=== PATIENT | female | born 1955 | race Hispanic/Latino ===

== ENCOUNTER 2016-07-27 22:18 | Emergency (ER) | payer OTHER ==
[~2016-07-27] VITALS: Ht 165.1 cm; Wt 81.6 kg
[~2016-07-27 22:18] MED LIST: AMOXIL500 MG PO; ANTIPYRINE & BE10 ML OT; ANTIVERT 25 MG25 MG PO; CIPRODEX 0.3%-7.5 ML OTIC; HYDROXYZINE PAM25 MG PO; IBU800 MG PO; LIPOFLAVONOID1 TAB PO; LISINOPRIL40 MG PO; METFORMIN500 MG PO; NASONEX0.05 MG/Ac NAS; PANTOPRAZOLE SO40 MG PO; SIMVASTATIN40 MG PO; ZOFRAN ODT4 MG SL
[2016-07-27 22:22] VITALS: BP 143/86
--- NOTE | 2016-07-27 22:39 | ED EAR COMPLAINT ---
History of Present Illness General Chief Complaint: Ear Complaints Stated Complaint: BILATERAL EAR PAIN Source: patient, family, old records Exam Limitations: language barrier Vital Signs & Intake/Output Vital Signs & Intake/Output Vital Signs Date Time Temp Pulse Resp B/P Pulse O2 O2 Flow FiO2 Ox Delivery Rate 07/27 2222 98.2 76 18 143/86 99 Room Air Allergies Coded Allergies: MDX - Shellfish (SHELLFISH) (UNKNOWN-POSSIBLE ANAPHYLAXIS 07/30/14) MDX - Aspirin (Aspirin) (RASH 05/06/14) MDX - Bananas (Bananas ([employer])) (RASH 05/06/14) MDX - Fruits (Fruits) (RASH 05/06/14) MDX - Metoclopramide (From REGLAN) (RESTLESS LEGS, ANXIETY 07/30/14) MDX - [place] ([place]) (RASH 05/06/14) Reconcile Medications Antipyrine/Benzocaine (Antipyrine-Benzocaine Ear Drop) 10 ML EMERITA 2-4 DROP OT Q4-6 PRN EAR PAIN, CERUMEN Hydroxyzine Pamoate (Hydroxyzine Venessa) 25 MG CAP 1 CAP PO PRN ANXIETY ( Reported) Ibuprofen (Ibu) 800 MG TAB 1 TAB PO PRN PAIN (Reported) Lisinopril 40 MG TABLET 1 TAB PO DAILY BP (Reported) METFORMIN HCL (Metformin) 500 MG TABLET 1 TAB PO BID DIABETES (Reported) Mometasone Furoate (Nasonex) 0.05 MG/Actuation SPR 2 SPRAY TOSHIA DAILY CONGESTION [id number] (Lipoflavonoid) 1 TAB TAB 1 TAB PO DAILY SUPPLEMENT (Reported) Pantoprazole Sodium 40 MG TABLET.DR 1 TAB PO DAILY AC PRN ACID REFLUX ( Reported) Simvastatin 40 MG TABLET 1 TAB PO QPM CHOLESTEROL (Reported) Tylenol With Codeine (Tylenol With Codeine #3 Tablet) 300 MG-30 MG TABLET 1 TAB PO Q6 PRN PAIN Triage Note: PT TO TRIAGE WITH C/O BILAT EAR PAIN, DIZZINESS, WEAKNESS x2DAYS. PT SPEAKS AMHARIC, PTS SON IN TRIAGE FOR TRANSLATION. PT DENIES CHEST PAIN, DENIES SOB, AFEBRILE, VSS. HX OF CHRONIC EAR ?PAIN/INFECTION. Triage Nurses Notes Reviewed? yes Onset: Gradual Duration: getting worse Timing: recent history Severity: severe Severity Numbers: 7 HPI: Patient is a 60-year-old female with a past medical history of diabetes, hypertension and hyperlipidemia who presents to emergency room with complaints of a significant remote history of ear pain and decreased hearing sensation. History is limited due to patient being primarily [place] speaking only however does present with son who states that "for the longest time" she's been complaining of ear pain where in the past 4 months she followed up with a [place] ear nose and throat doctor and Dr. Edwards in which she was administered ear drops for cerumen impaction and hearing aids however patient states that she has not leg using this due to pain worsening from application of these aids. The son also states that patient was told that she has narrow external auditory ear canals however no infection has ever been present from the ears. Patient denies any mechanism injury states that pain currently makes patient dizzy however denies any room spinning sensation. Denies any discharge fever chills sore throat headache neck pain neck stiffness. Patient has not taken any medications for pain Past History Travel History Traveled to [place] past 21 day No Medical History Any Pertinent Medical History? see below for history EENT: otitis media Cardiovascular: hypertension Endocrine: NIDDM Surgical History Surgical History: non-contributory Psychosocial History What is your primary language [place] Tobacco Use: Never used Family History Hx Contributory? No Review of Systems Review of Systems Constitutional: Reports: no symptoms. EENTM: Reports: see HPI, ear pain. Denies: ear discharge, ear redness. Respiratory: Reports: no symptoms. Cardiovascular: Reports: no symptoms. GI: Reports: no symptoms. Genitourinary: Reports: no symptoms. Musculoskeletal: Reports: no symptoms. Skin: Reports: no symptoms. Neurological/Psychological: Reports: no symptoms. Hematologic/Endocrine: Reports: no symptoms. Immunologic/Allergic: Reports: no symptoms. All Other Systems: Reviewed and Negative Physical Exam Physical Exam General Appearance: no apparent distress, alert, comfortable Ears: Bilateral: canal normal, Tympanic normal. Comments: HEENT: Normal EENT exam, extraocular motion intact, no nystagmus. Pupils equally round and reactive to light and accommodation. Nose is atraumatic. External auditory canal and Tympanic membranes clear. Pharynx normal. No swelling or edema. Neck: Supple, no lymphadenopathy, normal range of motion without pain or tenderness Back: Nontender, no CVA tenderness. Cardiovascular: Regular rate and rhythms no murmurs rubs or gallops, normal JVP Respiratory: Chest nontender. No respiratory distress.breath sounds clear to auscultation bilaterally Abdomen: Soft, nontender nondistended, no appreciable organomegaly. Normal bowel sounds. No ascites Extremity: No edema, no calf tenderness to palpation, normal and equal pulses. Neuro: Alert oriented x3, motor sensory normal, Skin: No appreciable rash on exposed skin, skin is warm and dry. Psych: Mood and affect is normal, memory and judgment is normal. Progress Differential Diagnoses I considered the following diagnoses in my evaluation of the patient: [Otitis media, otitis externa, cancer, mastoiditis, chronic pain, anxiety pharyngitis, meningitis, labyrinthitis,] Plan of Care: The son states that there is concerned of anxiety and which currently patient looks well no apparent distress and has unremarkable physical exam findings. No concern at this time of cerumen impaction or otitis media or otitis externa. Patient had nontender external anatomy upon palpation. Patient was strongly advised to follow up with her ENT doctor patient was given Tylenol codeine for her pain. On discharge patient had normal steady gait. Initial ED EKG: none Departure Departure Disposition: HOME OR SELF CARE Condition: Stable Clinical Impression Primary Impression: Acute pain of both ears Referrals: CLAYTON TAPIA,SUSY DUPREE (PCP/Family) Additional Instructions: As discussed begin vaoi-erh-waidmsg ibuprofen 3 tablets of 200 mg every 8 hours for pain and inflammation. Begin the prescription Tylenol with Codeine for breakthrough pain relief. Prescription is waiting at [facility] pharmacy. Tomorrow follow up with your established ear nose and throat Dr. Edwards for further evaluation treatment. If symptoms worsen return to emergency room Departure Forms: Customer Survey General Discharge Information Prescriptions: Current Visit Scripts Tylenol With Codeine (Tylenol With Codeine #3 Tablet) 1 TAB PO Q6 PRN PAIN #12 TAB
[2016-07-27] MEDS ORDERED: TYLENOL WITH C1 EACH PO (23:11)
== END 2016-07-27 23:35 ==
LOC: ERH 22:18
DX: H92.03 Otalgia, bilateral (principal)

== ENCOUNTER 2016-10-22 23:57 | Emergency (ER) | payer OTHER ==
[~2016-10-22] VITALS: Ht 154.9 cm; Wt 84.8 kg
[~2016-10-22 23:57] MED LIST changes: +TYLENOL WITH C1 EACH PO
--- NOTE | 2016-10-23 01:02 | ED GENERAL ADULT ---
See Addendum History of Present Illness General Chief Complaint: Allergy Symptoms Stated Complaint: ALLERGY S/S Source: patient, family Exam Limitations: language barrier Vital Signs & Intake/Output Vital Signs & Intake/Output Vital Signs Date Time Temp Pulse Resp B/P B/P Pulse O2 O2 Flow FiO2 Mean Ox Delivery Rate 10/23 0155 98 10/23 0148 97 Room Air Room Air 10/23 0002 97.8 78 22 132/84 99 Triage Nurses Notes Reviewed? yes Onset: Abrupt Duration: hour(s): Timing: recent history HPI: 10/23/16 1 AM 61-year-old female presents to the emergency department for sudden onset of itching, cough and difficulty breathing that started approximately 4 hours prior to arrival. She does have a history of allergies. She does not recall eating anything she is allergic to currently. She does say that she is allergic to bananas and strawberries. The onset of the symptoms was abrupt, the duration was approximately 4 hours ago, the severity significant; as her symptoms required her to come to the emergency department for care. She has no chest pain fever or other complaints. (MIKO OVALLE DO) Allergies Coded Allergies: shellfish derived (Severe, ANAPHYLAXIS 07/27/16) aspirin (Intermediate, RASH 07/27/16) banana (Intermediate, RASH 07/27/16) strawberry (Intermediate, RASH 07/27/16) Uncoded Allergies: FRUITS (UNSPECIFIED) (Intermediate, RASH 07/27/16) Reconcile Medications Antipyrine/Benzocaine (Antipyrine-Benzocaine Ear Drop) 10 ML EMERITA 2-4 DROP OT Q4-6 PRN EAR PAIN, CERUMEN Hydroxyzine HCl 50 MG TABLET 1 TAB PO TID PRN ALLERGIC REACTION Hydroxyzine Pamoate (Hydroxyzine Venessa) 25 MG CAP 1 CAP PO PRN ANXIETY ( Reported) Ibuprofen (Ibu) 800 MG TAB 1 TAB PO PRN PAIN (Reported) Lisinopril 40 MG TABLET 1 TAB PO DAILY BP (Reported) METFORMIN HCL (Metformin) 500 MG TABLET 1 TAB PO BID DIABETES (Reported) Metformin HCl (Metformin HCl ER) 500 MG TAB.ER.24 1 TAB PO 5PM DIABETES ( Reported) Mometasone Furoate (Nasonex) 0.05 MG/Actuation SPR 2 SPRAY TOSHIA DAILY CONGESTION [id number] (Lipoflavonoid) 1 TAB TAB 1 TAB PO DAILY SUPPLEMENT (Reported) Pantoprazole Sodium 40 MG TABLET.DR 1 TAB PO DAILY AC PRN ACID REFLUX ( Reported) Prednisone 20 MG TABLET 2 TAB PO QDAY ALLERGIC REACTION Ranitidine (Ranitidine HCl) 150 MG TABLET 1 TAB PO BID HEARTBURN (Reported) Simvastatin 40 MG TABLET 1 TAB PO QPM CHOLESTEROL (Reported) Tylenol With Codeine (Tylenol With Codeine #3 Tablet) 300 MG-30 MG TABLET 1 TAB PO Q6 PRN PAIN (JAIRON TAPIA,ASHLI Valdovinos) Past History Travel History Traveled to [place] past 21 day No Medical History Any Pertinent Medical History? see below for history EENT: otitis media Cardiovascular: hypertension Endocrine: NIDDM Surgical History Surgical History: non-contributory Psychosocial History What is your primary language Thai Family History Hx Contributory? No (MIKO OVALLE DO) Review of Systems Review of Systems Constitutional: Denies: fever. EENTM: Reports: no symptoms. Respiratory: Reports: cough, short of breath, sputum production. Cardiovascular: Denies: chest pain. GI: Denies: abdominal pain. Genitourinary: Reports: no symptoms. Musculoskeletal: Reports: no symptoms. Skin: Denies: rash (ITCHING). Neurological/Psychological: Reports: no symptoms. Hematologic/Endocrine: Reports: no symptoms. Immunologic/Allergic: Reports: no symptoms. (MIKO OVALLE DO) Physical Exam Physical Exam General Appearance: alert, awake, anxious, mild distress Head: atraumatic, normal appearance Eyes: Bilateral: normal appearance, PERRL, EOMI. Ears, Nose, Throat: moist mucus membranes Neck: normal inspection, supple Respiratory: no respiratory distress, rhonchi Cardiovascular: regular rate/rhythm Peripheral Pulses: 4+ radial (R), 4+ radial (L) Gastrointestinal: soft, non-tender Back: normal range of motion Extremities: normal range of motion, no edema Neurologic/Psych: no motor/sensory deficits, awake, alert, oriented x 3 Skin: rash (ERYTHEMA) Core Measures ACS in differential dx? No CVA/TIA Diagnosis: No Severe Sepsis Present: No Septic Shock Present: No (MIKO OVALLE DO) Progress Differential Diagnoses I considered the following diagnoses in my evaluation of the patient: [ Bronchitis, allergic reaction, congestive heart failure, bronchitis] Plan of Care: Orders Procedure Date/time Status EKG 05/20 0122 Active Initial ED EKG: pending Comments: 10/23/16 patient signed out to Dr Bowie at 2 am (MIKO OVALLE DO) Departure Departure Disposition: STILL A PATIENT Condition: Stable Clinical Impression Primary Impression: Allergic reaction Referrals: SUSY ALLAN (PCP/Family) Departure Forms: Customer Survey General Discharge Information (MIKO OVALLE DO) Departure Prescriptions: Current Visit Scripts Prednisone 2 TAB PO QDAY #8 TAB Hydroxyzine HCl 1 TAB PO TID PRN ALLERGIC REACTION #30 TAB PA/STEAM ROLLER OPERATOR Co-Sign Statement Statement: ED Attending supervision documentation- [] I saw and evaluated the patient. I have also reviewed all the pertinent lab results and diagnostic results. I agree with the findings and the plan of care as documented in the PA's/STEAM ROLLER OPERATOR's documentation. [x] I have reviewed the ED Record and agree with the PA's/STEAM ROLLER OPERATOR's documentation. [] Additions or exceptions (if any) to the PAs/STEAM ROLLER OPERATOR's note and plan are summarized below: [] (JAIRON TAPIA,ASHLI Valdovinos) Critical Care Note Critical Care Note Critical Care Time: non-applicable (MIKO OVALLE DO)
[2016-10-23] MEDS ORDERED: PREDNISONE20 M1 PO (01:35)
[2016-10-23] MEDS ORDERED: HYDROXYZINE HCL50 M1 PO (01:35)
[2016-10-23] MEDS ORDERED: METFORMIN HCL500 M2 PO (01:38)
[2016-10-23] MEDS ORDERED: RANITIDINE HCL150 MG PO (01:39)
--- NOTE | 2016-10-23 01:48 | RADIOLOGY REPORT ---
EXAMINATION: XR PORTABLE CHEST CLINICAL INFORMATION: Cough and shortness of breath. Rule out pneumonia. COMPARISON: Chest radiograph March 18, 2007. TECHNIQUE: Portable frontal view of the chest was obtained. FINDINGS: Symmetric lung inflation. Mild bibasilar atelectasis. No focal consolidation, pleural effusion, or pneumothorax. Cardiac silhouette size is normal. No acute osseous findings. IMPRESSION: Low lung volumes with mild bibasilar atelectasis and no focal consolidation.
[2016-10-23 03:50] VITALS: BP 126/74
== END 2016-10-23 04:34 ==
LOC: ERH 23:57
DX: T78.40XA Allergy, unspecified, initial encounter (principal); R06.00 Dyspnea, unspecified; R05 Cough
CPT/HCPCS: 1263; 93005; 93010; J7512